=== PATIENT | male | born 1990 | race Caucasian/White ===

== ENCOUNTER 2017-01-20 10:02 | Emergency (ER) | payer OTHER ==
[~2017-01-20] VITALS: Ht 188 cm; Wt 79.9 kg
[2017-01-20 10:03] VITALS: TEMP 37.2; Ht 188 cm; Wt 79.9 kg
[2017-01-20] MEDS ORDERED: KETOROLAC TROMETHAMINE 30 MG/ML VIAL IV STA (10:33)
[2017-01-20] MEDS ORDERED: SODIUM CHLORIDE 0.9% 1000ML 1,000 ML IV STA (10:33)
[2017-01-20] MEDS ORDERED: AMPICILLIN/SULBACTAM SOD INJ 3,000 MG in SODIUM CHLORIDE 0.9% 100ML 100 ML IV ONE (10:45)
--- NOTE | 2017-01-20 11:02 | EMERGENCY ROOM VISIT NOTE ---
History First contact with patient: 10:22 Chief Complaint: DENTAL PAIN Stated Complaint: MOUTH PAIN, CANT SWALLOW Nursing Triage Summary: left lower jaw pain, pain in throat when swallowing. no trouble breathing at this time History of Present Illness The patient is a 26 year old male who presents to the Emergency Room with complaints of left-sided throat and jaw pain that started in the middle night, woke him from sleep. He states he felt fine yesterday. He states he looked in the back of his throat and he thinks that his back left lower molar might be infected, he saw some bleeding and swelling from that area. He also states that his throat is sore when he swallows and this morning his voice has been muffled. He is able to swallow liquids. He did not take any medications for the pain. He denies any recent sick contacts or history of previous similar symptoms. He denies any difficulty breathing, wheezing, stridor, chest pain, dizziness or passing out, fevers or chills, nausea or vomiting. Review of Systems A complete 10 point review of systems was reviewed with the patient with pertinent positives and negatives as per history of present illness. All else were negative. Social History Smoking Status: Current Every Day Smoker Alcohol Use: none Drug Use: none Marital Status: in relationship Housing Status: lives with significant other Occupation Status: employed Current/Historical Medications Scheduled Amoxicillin & Pot Clavulanate (Augmentin 875-125 mg), 1 TAB PO BID Physical Exam Vital Signs Date Time Temp Pulse Resp B/P (MAP) Pulse Ox O2 Delivery O2 Flow Rate FiO2 01/20/17 13:08 90 18 114/71 97 01/20/17 11:22 98 Room Air 01/20/17 11:11 80 18 119/66 99 Room Air 01/20/17 11:11 69 18 119/66 98 Room Air 01/20/17 10:03 37.2 69 16 131/77 98 Room Air Physical Exam CONSTITUTIONAL: No acute distress, but appears uncomfortable. Well hydrated, well appearing and well nourished. Alert and oriented X 4 with normal affect. HEENT: Normocephalic, atraumatic. Pupils equal, round and reactive to light, EOMI. TMs normal. Moist mucous membranes. There is gingival swelling and erythema around the left lower back molar, very tender to palpation, fluctuant, no drainage noted. There is erythema that extends into the left posterior pharynx, mild swelling, no uvulitis, no uvular deviation. No trismus. NECK: Supple, full active range of motion without discomfort. RESPIRATORY: Clear to auscultation bilaterally with no wheezing, crackles, rhonchi or stridor. Equal expansion bilaterally. CARDIOVASCULAR: Regular rate and rhythm with no murmurs, rubs or gallops. Normal peripheral perfusion. No edema. GASTROINTESTINAL: Soft, nontender, nondistended. Bowel sounds present in all quadrants. MUSCULOSKELETAL: Full range of motion of all joints without discomfort. INTEGUMENTARY: No rash or other significant dermatologic conditions noted. NEUROLOGIC: Cranial nerves II-XII grossly intact. No focal neurologic deficits noted. Medical Decision & Procedures ER Provider Diagnostic Interpretation: CT SOFT TISSUE NECK WITH IV CONTRAST CLINICAL HISTORY: 26 years-old Male presenting with eval periapical abscess vs retropharyngeal abscess, pain and swelling of the left lower mandible radiating to the left side of the neck since this morning, difficulty swallowing. TECHNIQUE: Multidetector CT of the neck was performed after the administration of intravenous contrast. IV contrast: 94 mL of Optiray 320. A dose lowering technique was used consistent with the principles of ALARA (as low as reasonably achievable). COMPARISON: None. CT DOSE (mGy.cm): The estimated cumulative dose is 465.53 mGy.cm. FINDINGS: Addiction Treatment Counselor topogram: Unremarkable. Paranasal sinuses and mastoid air cells clear. Nasopharynx, oral cavity, oropharynx, hypopharynx, and larynx patent. No suspicious nodular enhancement. Minimal infiltration may be present over the mandibular symphysis. No mandibular fracture or osseous erosion. No periapical lucency. No odontogenic abscess is evident. No fluid collection in the retropharyngeal soft tissues or infiltration or displacement of the parapharyngeal fat. No lymphadenopathy. Normal thyroid. Cervical spine normal. Lung apices clear. Patent vasculature. Limited intracranial evaluation within normal limits. Orbits normal. IMPRESSION: Minimal infiltration overlying the mandibular symphysis, possibly indicating buccal mucosal inflammation. No evidence of odontogenic or periapical abscess. No significant deep inflammation. Laboratory Results 01/20/17 11:00 Red Blood Count 5.45, Mean Corpuscular Volume 82.6, Mean Corpuscular Hemoglobin 30.5, Mean Corpuscular Hemoglobin Concent 36.9, Mean Platelet Volume 10.1, Neutrophils (%) (Auto) 79.0, Lymphocytes (%) (Auto) 11.9, Monocytes (%) (Auto) 7.9, Eosinophils (%) (Auto) 0.7, Basophils (%) (Auto) 0.2, Neutrophils # (Auto) 8.33, Lymphocytes # (Auto) 1.25, Monocytes # (Auto) 0.83, Eosinophils # (Auto) 0.07, Basophils # (Auto) 0.02 01/20/17 11:00 Test 01/20/17 11:00 White Blood Count 10.53 K/uL (4.8-10.8) Red Blood Count 5.45 M/uL (4.7-6.1) Hemoglobin 16.6 g/dL (14.0-18.0) Hematocrit 45.0 % (42-52) Mean Corpuscular Volume 82.6 fL (80-100) Mean Corpuscular Hemoglobin 30.5 pg (25-34) Mean Corpuscular Hemoglobin Concent 36.9 g/dl (32-36) Platelet Count 114 K/uL (130-400) Mean Platelet Volume 10.1 fL (7.4-10.4) Neutrophils (%) (Auto) 79.0 % Lymphocytes (%) (Auto) 11.9 % Monocytes (%) (Auto) 7.9 % Eosinophils (%) (Auto) 0.7 % Basophils (%) (Auto) 0.2 % Neutrophils # (Auto) 8.33 K/uL (1.4-6.5) Lymphocytes # (Auto) 1.25 K/uL (1.2-3.4) Monocytes # (Auto) 0.83 K/uL (0.11-0.59) Eosinophils # (Auto) 0.07 K/uL (0-0.5) Basophils # (Auto) 0.02 K/uL (0-0.2) RDW Standard Deviation 38.1 fL (36.4-46.3) RDW Coefficient of Variation 12.8 % (11.5-14.5) Immature Granulocyte % (Auto) 0.3 % Immature Granulocyte # (Auto) 0.03 K/uL (0.00-0.02) Anion Gap 5.0 mmol/L (3-11) Est Creatinine Clear Calc Drug Dose 151.4 ml/min Estimated GFR () 141.3 Estimated GFR (Non- 122.0 BUN/Creatinine Ratio 20.8 (10-20) Calcium Level 9.1 mg/dl (8.5-10.1) Date/Time Source Procedure Growth Status 01/20/17 00:00 Throat Group A Streptococcus Screen - Final SPECIMEN POSITIVE FOR GROUP A BETA ST... Complete 01/20/17 00:00 Throat Group A Streptococcus Screen (FAHAD) - Final Complete Medications Administered Medications (Trade) Dose Ordered Sig/Rebeka Route Start Time Stop Time Status Last Admin Dose Admin Sodium Chloride 1,000 ml @ 999 mls/hr Q1H1M STAT IV 01/20/17 10:33 01/20/17 11:33 DC 01/20/17 11:06 999 MLS/HR Ampicillin Sodium/ Sulbactam Sodium 3000 mg/Sodium Chloride 108 ml @ 200 mls/hr ONE ONCE IV 01/20/17 10:45 01/20/17 11:17 DC 01/20/17 11:06 200 MLS/HR Ketorolac Tromethamine (Toradol Inj) 15 mg NOW STAT IV 01/20/17 10:33 01/20/17 10:36 DC 01/20/17 11:06 15 MG Medical Decision CC: Patient presenting with complaint of throat pain Interpretation of Labs: No leukocytosis, but elevated neutrophils, no anemia, no significant leftward abnormalities, normal renal function. Positive rapid strep test. Differential Diagnosis: Includes, but not limited to strep pharyngitis, viral pharyngitis, periapical/dental abscess, retropharyngeal abscess, peritonsillar abscess among others. Medication Reconciliation: I attest that I have personally reviewed the patient' s current medication list. Vital signs review: I reviewed the patient's vital signs and interpret them as follows: T: Afebrile; BP: Normotensive; HR: Within normal limits; RR: Within normal limits; Pulse Ox: Within normal limits on room air. Blood pressure screening: The patient was found to have normal blood pressure on screening and does not require follow-up for repeat blood pressure check. Summary: Patient was evaluated at bedside, history of physical exam performed. Patient is alert and oriented, no acute distress and nontoxic appearing, resting comfortably in the stretcher. On exam, there is moderate gingival and posterior pharynx erythema and swelling , no exudate, tender to palpation around the posterior left lower molar. Patient's voice sounds slightly muffled, but there is no trismus, uvular deviation, and airway is patent. Orders were placed at bedside for labs, rapid strep, IV fluids for hydration, IV Toradol for pain, IV Unasyn for suspected intraoral infection, and CT soft tissue neck with IV contrast to evaluate for retroperitoneal abscess versus periapical abscess. Patient discussed with Dr. Amaya, who agrees with my assessment and plan. Labs reviewed as above, significant abnormalities, notable that strep test is positive. Patient reassessed multiple times throughout ED stay, he reports he is much improved after interventions, pain improved. He is tolerating oral fluids without difficulty. Patient updated on all results and plan for discharge home, he was instructed to have close follow-up with his PCP and dentist. Patient was also given strict return precautions should his symptoms worsen in any way, he verbalized understanding. Patient was discharged home in stable condition and ambulatory. Impression Primary Impression: Strep pharyngitis Additional Impression: Gingivitis, acute Departure Information Dispostion Home / Self-Care Condition GOOD Prescriptions Amoxicillin & Pot Clavulanate (Augmentin 875-125 mg) 1 Tab Tab 1 TAB PO BID for 10 Days, #20 TAB Prov: Juanita Bliss CRNP 01/20/17 Referrals No Doctor, Assigned (PCP) Patient Instructions ED Abscess Dental, ED Strep Pharyngitis Conf, My [facility] Additional Instructions Your rapid strep screen was read as positive today. You also have a suspected dental infection. Take all prescription medications as prescribed. Augmentin twice a day for 10 days. All antibiotics have the potential to cause diarrhea. A few develop a rash while on this medication, if this occurs please stop the medication and see your family physician for evaluation. Ibuprofen(Motrin, Advil) may be used for fever or throat pain. Use 600mg every 6-8 hours as needed. Take with food. Avoid using more than 2400mg in a 24 hour period. Do not use 2400mg per day for more than three consecutive days without physician direction. Prolonged inappropriate use can lead to stomach upset or ulcers. (AND/OR) Acetaminophen(Tylenol) may be used for fever or pain. Use 1000mg every 8 hours as needed. Avoid using more than 3000 mg in a 24 hour period. Use warm salt water gargles. And drink warm tea to help soothe your throat. Refrain from smoking cigarettes or using chewing tobacco until you have been evaluated by your dentist. Keeping beverages lukewarm and consuming soft foods can decrease your pain. Warm compresses over the affected area may offer some relief. You MUST seek evaluation of your dental pain by a dentist following your visit to the Emergency Department. The Emergency Department is not capable of treating dental issues long-term. You should call your dentist as soon as possible to make an appointment for evaluation of your dental pain/infection. Return to emergency department if you develop symptoms of difficulty breathing, wheezing, difficulty swallowing, fever/chills, increased pain, redness or swelling of your face/jaw, or any other concerns. Problem Qualifiers
[2017-01-20] MEDS ORDERED: OPTIRAY 320 IV PRN (11:15)
[2017-01-20 11:20] LABS: BASO % 0.2 %; BASO ABS # 0.02 K/uL (0-0.2); COMPLETE YES; EOS % 0.7 %; IG% 0.3 %; LYMPH % 11.9 %; LYMPH ABS # 1.25 K/uL (1.2-3.4); MEAN CELL VOLUME 82.6 fL (80-100); MEAN CORPUSCULAR HEMOGLOBIN 30.5 pg (25-34); MEAN CORPUSCULAR HGB CONC 36.9 g/dl (32-36); MEAN PLATELET VOLUME 10.1 fL (7.4-10.4); MONO % 7.9 %; PLATELET COUNT 114 K/uL (130-400); RED BLOOD COUNT 5.45 M/uL (4.7-6.1); WHITE BLOOD COUNT 10.53 K/uL (4.8-10.8)
[2017-01-20 11:47] LABS: BUN/CREATININE RATIO 20.8 (10-20); CALCIUM 9.1 mg/dl (8.5-10.1); CREATININE 0.85 mg/dl (0.60-1.40); POTASSIUM 4.3 mmol/L (3.5-5.1)
--- NOTE | 2017-01-20 12:21 | DIAGNOSTIC IMAGING REPORT ---
SOFT TISSUE NECK WITH CLINICAL HISTORY: 26 years-old Male presenting with eval periapical abscess vs retropharyngeal abscess, pain and swelling of the left lower mandible radiating to the left side of the neck since this morning, difficulty swallowing. TECHNIQUE: Multidetector CT of the neck was performed after the administration of intravenous contrast. IV contrast: 94 mL of Optiray 320. A dose lowering technique was used consistent with the principles of ALARA (as low as reasonably achievable). COMPARISON: None. CT DOSE (mGy.cm): The estimated cumulative dose is 465.53 mGy.cm. FINDINGS: Spooling Supervisor topogram: Unremarkable. Paranasal sinuses and mastoid air cells clear. Nasopharynx, oral cavity, oropharynx, hypopharynx, and larynx patent. No suspicious nodular enhancement. Minimal infiltration may be present over the mandibular symphysis. No mandibular fracture or osseous erosion. No periapical lucency. No odontogenic abscess is evident. No fluid collection in the retropharyngeal soft tissues or infiltration or displacement of the parapharyngeal fat. No lymphadenopathy. Normal thyroid. Cervical spine normal. Lung apices clear. Patent vasculature. Limited intracranial evaluation within normal limits. Orbits normal. IMPRESSION: Minimal infiltration overlying the mandibular symphysis, possibly indicating buccal mucosal inflammation. No evidence of odontogenic or periapical abscess. No significant deep inflammation. Electronically signed by: Arthur Molina M.D. 01/20/2017 12:20 PM Dictated Date/Time: 01/20/2017 12:14 PM
[2017-01-20] MEDS ORDERED: AMOX875T PO (12:37)
[2017-01-20 13:08] VITALS: BP 114/71; PULSE 90; O2SAT 97
== END 2017-01-20 13:09 | disposition home or self-care (01) ==
LOC: C.EDB 10:03 → C.EDC 13:09
DX: J02.0 Streptococcal pharyngitis (principal); K05.00 Acute gingivitis, plaque induced; F17.210 Nicotine dependence, cigarettes, uncomplicated